=== PATIENT | male | born 1950 | race Caucasian/White ===

== ENCOUNTER → 2018-08-10 | Outpatient (CLI) | payer MEDICARE ==
--- NOTE | 2018-08-10 12:54 | MR ---
EXAMINATION TYPE: MR lumbar spine wo con DATE OF EXAM: 08/10/2018 COMPARISON: None HISTORY: Back pain TECHNIQUE: Multiplanar, multisequence images of the lumbar spine were acquired. Patient was unable to tolerate t he exam, the exam was not completed. No axial imaging. Sagittal images show multilevel spondylosis with minimal endplate discogenic marrow signal change. So me loss of disc signal is present with associated loss of disc height L2-3, L3-4 and L4-5. The conus is at T12-L1 shows an unremarkable appearance. Circumferential extension endplate disc bulge encroach es somewhat on the neural foramina at L5-S1. Suspect spondylolysis bilaterally at L5. No evident list hesis. Lumbar vertebral bodies show preserved height and alignment. Small posterior disc bulge suspec renetta L4-5. Facet arthropathy changes are present. IMPRESSION: Exam is limited. There is degenerative disc disease. Spondylolysis suspected bilaterally at L5 withou t listhesis. Suspect some foraminal encroachment L5-S1.
== END ==
LOC: RADMRIMAIN 11:07
PROVIDERS: ATTEND Family Medicine
DX: M54.16 Radiculopathy, lumbar region (principal); M51.36 Other intervertebral disc degeneration, lumbar region
CPT/HCPCS: 72148

== ENCOUNTER 2019-05-03 11:30 | Day surgery (SDC) | payer MEDICARE ==
[2019-05-02 11:10] VITALS: BMI 33.9
[~2019-05-03 11:30] MED LIST: DEXAMETHASONE SOD PHOSPHATE 10 MG/ML 1 ML VIAL IV ONE; LACTATED RINGERS 1,000 ML IV SCH; LIDOCAINE 1% 20 ML VIAL (10MG/ML) FOR IV START INTRADERMA PRN; MIDAZOLAM 2 MG/2 ML VIAL IV PRN; fentaNYL (PF) 50 MCG/ML 2 ML AMP IV PRN
[2019-05-03 12:14] LABS: Glucose,Whole Blood 137 mg/dL (75-99)
[2019-05-03 12:18] VITALS: RESP 18; TEMP 97.4
[2019-05-03] MEDS ORDERED: GLUCAGON 1 MG/ML VIAL ONE (13:01)
[2019-05-03] MEDS ORDERED: PROPOFOL 10 MG/ML 20 ML VIAL IV ONE (13:01)
[2019-05-03] MEDS ORDERED: LIDOCAINE 1% INJ 10MG/ML (20 ML MDV) ONE (13:01)
--- NOTE | 2019-05-03 13:09 | P.GSHP ---
History of Present Illness H&P Date: 05/03/19 Chief Complaint: GERD, screening colonoscopy This is a 61-year-old male who presents today for EGD and screening colonoscopy. Patient this GERD. Past Medical History Past Medical History: Diabetes Mellitus, Hypertension Additional Past Medical History / Comment(s): anemia,treated at [facility] ER on 04-01-19 for dizziness,dehydration, and hypokalemia. History of Any Multi-Drug Resistant Organisms: None Reported Additional Past Surgical History / Comment(s): colonoscopy,hemorrhoidectomy Past Anesthesia/Blood Transfusion Reactions: No Reported Reaction Smoking Status: Current every day smoker - Past Family History Mother Family Medical History: Cancer Additional Family Medical History / Comment(s): lung Father Family Medical History: No Reported History Medications and Allergies Home Medications Medication Instructions Recorded Confirmed Type Ferrous Sulfate [Feosol] 325 mg PO DAILY 05/02/19 05/02/19 History Insulin Degludec [Tresiba] 60 units SQ QAM 05/02/19 05/02/19 History Liraglutide [Victoza 2-Mian] 1.8 mg SQ DAILY 05/02/19 05/02/19 History Losartan [Cozaar] 25 mg PO QAM 05/02/19 05/02/19 History Omeprazole [PriLOSEC] 20 mg PO AC-BRKFST 05/02/19 05/02/19 History glipiZIDE [Glucotrol] 5 mg PO AC-BID 05/02/19 05/02/19 History traZODone HCL [Desyrel] 50 mg PO HS 05/02/19 05/02/19 History Allergies Allergy/AdvReac Type Severity Reaction Status Date / Time No Known Allergies Allergy Verified 05/03/19 11:59 Surgical - Exam Vital Signs Temp Pulse Resp BP Pulse Ox 97.4 F L 100 18 158/72 99 05/03/19 11:40 05/03/19 11:40 05/03/19 11:40 05/03/19 11:40 05/03/19 11:40 - General well developed, well nourished, no distress - Eyes PERRL - ENT normal pinna - Neck no masses - Respiratory normal expansion - Cardiovascular Rhythm: regular - Abdomen Abdomen: soft, non tender Results - Labs Abnormal Lab Results - Last 24 Hours (Table) 05/03/19 Range/Units 12:05 POC Glucose (mg/dL) 137 H (75-99) mg/dL Assessment and Plan Assessment: GERD we'll perform EGD. We'll also perform screening colonoscopy.
--- NOTE | 2019-05-03 13:34 | P.OP ---
Date of Procedure: 05/03/19 Preoperative Diagnosis: GERD Screening colonoscopy Postoperative Diagnosis: Antral gastritis Mild esophagitis No evidence of hiatal hernia Diverticulosis Procedure(s) Performed: EGD Colonoscopy Anesthesia: MAC Surgeon: Crescencio Montes Pathology: other (Antral, esophagus) Condition: stable Disposition: PACU Description of Procedure: The patient's placed on the endoscopy table in the lateral position. He received IV sedation. The gastroscope placed oropharynx and passed in the esophagus into the stomach. Scope was then placed through the pylorus. First and second portion of the duodenum appeared normal. Scope was then brought back the antrum and this appeared mildly inflamed. A biopsies performed. The scope was then retroflexed and the remainder of the stomach appeared normal. The GE junction was at 40 cm. The distal esophagus appeared minimally inflamed this was biopsied. There was no evidence of any hiatal hernias. The proximal esophagus appeared normal. Scope withdrawn for patient. Next digital rectal exam was performed which revealed a few external hemorrhoids. The flexible colonoscope was then placed patient anus passed through the colon. Ileocecal valve. Cecum ascending and transverse colon appeared normal. In the descending; was moderate diverticular changes. The colon was quite tortuous. The scope was then brought back the rectum this appeared normal. Scope was brought patient.
[2019-05-03 13:54] VITALS: BP 145/56; PULSE 89
== END 2019-05-03 14:10 | disposition home or self-care (01) ==
LOC: ORWHC2ENDO 11:30
PROVIDERS: ATTEND Surgery
DX: Z12.11 Encounter for screening for malignant neoplasm of colon (principal); K29.60 Other gastritis without bleeding; K21.0 Gastro-esophageal reflux disease with esophagitis; Z79.84 Long term (current) use of oral hypoglycemic drugs; E11.9 Type 2 diabetes mellitus without complications; F17.200 Nicotine dependence, unspecified, uncomplicated; I10 Essential (primary) hypertension; Z79.4 Long term (current) use of insulin
CPT/HCPCS: 43239; 88305; 88342; G0121; J1610; J2001; J2704; 45378

== ENCOUNTER 2021-05-20 07:51 | Day surgery (SDC) | payer MEDICARE ==
[2021-05-16 15:19] VITALS: BMI 31.4
[~2021-05-20 07:51] MED LIST changes: +ALPRAZolam 0.25 MG TAB PO PRN; +ALPRAZolam 0.5 MG TAB PO PRN; -DEXAMETHASONE SOD PHOSPHATE 10 MG/ML 1 ML VIAL IV ONE; +LIDOCAINE 1% (10MG/ML) FOR IV START INTRADERMA PRN; -LIDOCAINE 1% 20 ML VIAL (10MG/ML) FOR IV START INTRADERMA PRN; -MIDAZOLAM 2 MG/2 ML VIAL IV PRN; +SODIUM CHLORIDE 0.9% 1,000 ML in EMPTY BAG 1 BAG IV ONE; -fentaNYL (PF) 50 MCG/ML 2 ML AMP IV PRN
[2021-05-20 08:40] LABS: Glucose,Whole Blood 144 mg/dL (75-99)
[2021-05-20 08:57] VITALS: TEMP 98.3
[2021-05-20 09:00] LABS: Basophils # (A) 0.1 k/uL (0-0.2); Basophils % (A) 1 %; Eosinophils # (A) 0.3 k/uL (0-0.7); Eosinophils % (A) 3 %; HCT 36.3 % (39.0-53.0); HGB 12.6 gm/dL (13.0-17.5); Lymphocytes # (A) 1.4 k/uL (1.0-4.8); Lymphocytes % (A) 14 %; MCHC 34.8 g/dL (31.0-37.0); MCV 74.7 fL (80.0-100.0); Mean Platelet Volume 6.5; Microcytosis Slight; Monocytes # (A) 0.6 k/uL (0-1.0); Monocytes % (A) 7 %; Neutrophils % (A) 73 %; Platelet Count 457 k/uL (150-450); RBC 4.85 m/uL (4.30-5.90); RDW 13.5 % (11.5-15.5); WBC 9.5 k/uL (3.8-10.6)
[2021-05-20 09:14] LABS: Potassium 3.4 mmol/L (3.5-5.1)
[2021-05-20 09:15] LABS: African American GFR (CKD) >90 (>60 ml/min/1.73 sqM); Anion Gap 11 mmol/L; Blood Urea Nitrogen 7 mg/dL (9-20); Calcium 9.7 mg/dL (8.4-10.2); Carbon Dioxide 29 mmol/L (22-30); Chloride 91 mmol/L (98-107); Glucose 146 mg/dL (74-99); Non-African American GFR(CKD) >90 (>60 ml/min/1.73 sqM); Sodium 131 mmol/L (137-145)
[2021-05-20] MEDS ORDERED: MIDAZOLAM 2 MG/2 ML VIAL IV ONE (10:52)
[2021-05-20] MEDS ORDERED: LIDOCAINE 1% INJ 10MG/ML (20 ML MDV) SQ ONE (10:54)
[2021-05-20] MEDS ORDERED: IOPAMIDOL-250 100ML BTL INTRAARTER ONE ×2 (11:05→11:11)
[2021-05-20] MEDS ORDERED: hydrALAZINE HCL 20 MG/ML 1 ML VIAL IV ONE (11:16)
--- NOTE | 2021-05-20 12:19 | IR ---
EXAMINATION TYPE: IR angio abdominal w runoff DATE OF EXAM: 05/20/2021 COMPARISON: NONE HISTORY: Fluoroscopy time. Fluoroscopy was provided to the referring clinician.
[2021-05-20] MEDS ORDERED: hydrALAZINE HCL 20 MG/ML 1 ML VIAL IVP STA (12:50)
[2021-05-20] MEDS ORDERED: hydrALAZINE HCL 20 MG/ML 1 ML VIAL ONE (12:51)
[2021-05-20] MEDS ORDERED: PANTOPRAZOLE 40 MG TABLET PO PRN (13:20)
[2021-05-20] MEDS ORDERED: SODIUM CHLORIDE 0.9% 1,000 ML in EMPTY BAG 1 BAG IV SCH (13:30)
[2021-05-20 16:46] VITALS: BP 169/72; PULSE 78; RESP 18
[2021-05-20] MEDS ORDERED: traZODone HCL 50 MG TAB PO SCH (21:00)
[2021-05-20] MEDS ORDERED: ATORVASTATIN 20 MG TAB PO SCH (21:00)
[2021-05-21] MEDS ORDERED: NON FORMULARY DRUG (Insulin Glargine,Hum.Rec.Anlog [Lantus Solostar Pen] 100 UNIT/ML Each) SQ SCH (09:00)
[2021-05-21] MEDS ORDERED: LOSARTAN 25 MG TAB PO SCH (09:00)
--- NOTE | 2021-05-25 07:25 | P.OP ---
Date of Procedure: 05/20/21 Preoperative Diagnosis: Bilateral lower extremity disabling claudication Sunny classification 3 Postoperative Diagnosis: Same, left superficial femoral artery stenosis, Bilateral anterior tibial artery occlusion, Right posterior tibial artery occlusion Procedure(s) Performed: Aortogram with bilateral lower extremity runoff under ultrasound guided access Conscious sedation 18 minutes Anesthesia: local Surgeon: Manpreet Parker Estimated Blood Loss (ml): 5 Pathology: none sent Condition: stable Indications for Procedure: 71-year-old gentleman who presented to the office secondary to pain in his lower extremities more so on his left and his right consistent with claudication involving his hip and calf. He underwent ABIs which demonstrated mild occlusive disease in the left lower extremity ABIs less than 0.9. 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 The area of bilateral groins were prepped and draped in usual sterile fashion. Timeout was performed in normal fashion. Under ultrasound guidance the right common femoral artery was located which showed to be patent without significant calcification or stenosis and was accessed with a multipurpose needle. Utilizing Seldinger technique a 5 Martiniquais sheath was placed. O35 guidewire was then placed into the aorta followed by a pigtail catheter. Aortogram was then obtained followed by bilateral lower extremity runoff angiograms. Flow was brisk through the superficial femoral artery stenosis and therefore no indication for intervention. Once completed all guidewires, catheter and sheath was removed and pressure was held for hemostasis. The patient tolerated the procedure well and was sent to recovery.
== END 2021-05-20 16:00 | disposition home or self-care (01) ==
LOC: CATHCVL 07:51
PROVIDERS: ATTEND Surgery
DX: I70.203 Unspecified atherosclerosis of native arteries of extremities, bilateral legs (principal); E11.40 Type 2 diabetes mellitus with diabetic neuropathy, unspecified; F17.290 Nicotine dependence, other tobacco product, uncomplicated; E78.5 Hyperlipidemia, unspecified; Z98.890 Other specified postprocedural states; Z79.84 Long term (current) use of oral hypoglycemic drugs; Z79.02 Long term (current) use of antithrombotics/antiplatelets; Z79.4 Long term (current) use of insulin; Z79.899 Other long term (current) drug therapy
CPT/HCPCS: 36200; 75625; 75716; 76937; 80048; 85025; C1769 ×3; C1894; J2250; J0360; J2001; Q9966; 36247